=== PATIENT | male | born 1980 | race Caucasian/White ===

== ENCOUNTER → 2023-07-19 07:46 | Outpatient (CLI) | payer OTHER, SELFPAY ==
--- NOTE | 2023-07-19 07:50 | DI.MRI.S_ITS ---
PROCEDURE: MR CERVICAL SPINE WO CON INDICATIONS: CERVALGIA TECHNIQUE: Noncontrast sagittal T1 spin echo and T2 fast spin echo, sagittal STIR, foraminal oblique sagittal T2 fast spin echo, and axial gradient echo or T2 fast spin echo through the cervical spine. COMPARISON: None. FINDINGS: Image quality: Excellent. Alignment and Curvature: Straightening of the normal cervical lordosis may be related to muscle spasm or positioning. Bone Marrow: Marrow demonstrates normal overall signal. Spinal Cord: Visualized spinal cord has normal size and signal. No cerebellar tonsillar herniation. Paraspinous Soft Tissues: No paravertebral masses. Prevertebral soft tissues are normal in thickness. C2-C3: Normal appearance. C3-C4: Normal appearance. C4-C5: Disc space narrowing uncovertebral arthropathy. No central stenosis. Moderate right and no left foraminal stenosis C5-C6: No central stenosis. Arthropathy results in moderate right and no left foraminal stenosis C6-C7: Disc space narrowing with arthropathy. No central stenosis. Moderate right and moderate left foraminal stenosis C7-T1: Normal appearance. IMPRESSION: Multilevel degenerative disc disease and arthropathy results in varying degrees of central and foraminal stenosis including moderate foraminal stenosis C4-5, C5-6 and C6-7 Approved by: Lewis Palm M.D. on 07/20/2023 at 11:10
== END ==
LOC: MRI 07:49
DX: M47.812 Spondylosis without myelopathy or radiculopathy, cervical region (principal); M50.321 Other cervical disc degeneration at C4-C5 level; M48.02 Spinal stenosis, cervical region
CPT/HCPCS: 72141